=== PATIENT | female | born 1985 | race Caucasian/White ===

== ENCOUNTER 2021-09-16 13:07 | Day surgery (SDC) | payer OTHER ==
[2021-09-16] MEDS ORDERED: Depo-Medrol 40 MG/ML IM ONE (13:08)
[2021-09-16] MEDS ORDERED: Sodium Chloride 0.9(Preservative Free) 10 ML IJ ONE (13:08)
[2021-09-16] MEDS ORDERED: Lactated Ringers 1,000 ML IV ONE (15:18)
[2021-09-16] MEDS ORDERED: DIPRIVAN 200 MG/20 ML IV ONE ×2 (15:53→15:59)
--- NOTE | 2021-09-16 16:50 | XRAY ---
Indication: Right L3-L5 transforaminal ZUNILDA. Intraoperative fluoroscopy provided for 37 seconds. 4 digital spot image submitted for interpretation demonstrates posterior needle tips projecting over the expected right L3 and L4 nerve roots. Small amount of contrast injected for needle tip placement. Correlate with intraoperative findings/report.
--- NOTE | 2021-09-16 18:29 | XRAY ---
37 seconds of fluoroscopy was used in surgery for a right L3-L5 transforaminal ZUNILDA.
== END 2021-09-16 16:20 | disposition home or self-care (01) ==
LOC: SDC-PAIN 13:07
PROVIDERS: ATTEND Psychiatry & Neurology Pain Medicine
DX: M54.16 Radiculopathy, lumbar region (principal); Z79.899 Other long term (current) drug therapy
CPT/HCPCS: 64483; 64484; 72100; 77003; J1030; J2704; Q9966

== ENCOUNTER 2021-11-04 13:32 | Day surgery (SDC) | payer OTHER ==
[2021-11-04] MEDS ORDERED: Depo-Medrol 40 MG/ML IM ONE (13:33)
[2021-11-04] MEDS ORDERED: Sodium Chloride 0.9(Preservative Free) 10 ML IJ ONE (13:33)
[2021-11-04] MEDS ORDERED: Xylocaine-Mpf 2% 5 Ml Vial ONE (14:27)
[2021-11-04] MEDS ORDERED: DIPRIVAN 200 MG/20 ML IV ONE (14:27)
--- NOTE | 2021-11-04 14:55 | XRAY ---
Indication: Right L3-L5 transforaminal ZUNILDA. Intraoperative fluoroscopy provided for 28 seconds. 4 digital spot images submitted for interpretation demonstrates posterior needle tips projecting over the expected right L3 and L4 nerve roots. Small amount of contrast injected for needle tip placement. Correlate with intraoperative findings/report.
--- NOTE | 2021-11-04 15:00 | XRAY ---
28 seconds fluoroscopy time in surgery for right L3-L5 transforaminal ZUNILDA.
[2021-11-04] MEDS ORDERED: Lactated Ringers 1,000 ML IV ONE (15:14)
== END 2021-11-04 14:52 | disposition home or self-care (01) ==
LOC: SDC-PAIN 13:32
PROVIDERS: ATTEND Psychiatry & Neurology Pain Medicine
DX: M54.16 Radiculopathy, lumbar region (principal); Z79.899 Other long term (current) drug therapy
CPT/HCPCS: 64483; 64484; 72100; 77003; J1030; J2704; Q9966

== ENCOUNTER 2021-12-09 13:11 | Day surgery (SDC) | payer OTHER ==
[2021-12-09] MEDS ORDERED: LIDOCAINE HCL 2% 100 MG/5 ML IJ ONE (13:12)
[2021-12-09] MEDS ORDERED: Xylocaine-Mpf 2% 5 Ml Vial ONE (14:56)
[2021-12-09] MEDS ORDERED: DIPRIVAN 200 MG/20 ML IV ONE (14:57)
--- NOTE | 2021-12-09 16:29 | XRAY ---
Indication: Bilateral L4-S1 MBB. Intraoperative fluoroscopy provided for 12 seconds. Single digital spot image submitted for interpretation demonstrates posterior needle tips projecting over the expected left and right L4-S1 nerve roots. Correlate with intraoperative findings/report.
[2021-12-09] MEDS ORDERED: Lactated Ringers 1,000 ML IV ONE (16:39)
--- NOTE | 2021-12-09 16:48 | XRAY ---
12 seconds of fluoroscopy was used in surgery for a bilateral L4-S1 MBB.
== END 2021-12-09 15:18 | disposition home or self-care (01) ==
LOC: SDC-PAIN 13:11
PROVIDERS: ATTEND Psychiatry & Neurology Pain Medicine
DX: M47.816 Spondylosis without myelopathy or radiculopathy, lumbar region (principal); Z79.899 Other long term (current) drug therapy
CPT/HCPCS: 64493; 64494; 72020; 77002; J2704

== ENCOUNTER 2022-01-06 15:07 | Day surgery (SDC) | payer OTHER ==
[2022-01-06] MEDS ORDERED: Marcaine Mpf 0.5% Vial 30 Ml IJ ONE (15:08)
[2022-01-06] MEDS ORDERED: Lactated Ringers 1,000 ML IV ONE (16:03)
--- NOTE | 2022-01-06 20:10 | XRAY ---
Indication: Bilateral L4-S1 MBB. Intraoperative fluoroscopy provided for 13 seconds. Single digital spot image submitted for interpretation demonstrates posterior needle tips projecting over the expected left and right L4-S1 nerve roots. Correlate with intraoperative findings/report.
--- NOTE | 2022-01-07 08:51 | XRAY ---
13 seconds fluoroscopy time in surgery for bilateral L4-S1 MBB.
== END 2022-01-06 15:15 | disposition home or self-care (01) ==
LOC: SDC-PAIN 15:07
PROVIDERS: ATTEND Psychiatry & Neurology Pain Medicine
DX: M47.816 Spondylosis without myelopathy or radiculopathy, lumbar region (principal); Z79.899 Other long term (current) drug therapy
CPT/HCPCS: 64493; 64494; 72020; 77002

== ENCOUNTER 2022-01-20 14:01 | Day surgery (SDC) | payer OTHER ==
[2022-01-20] MEDS ORDERED: Depo-Medrol 40 MG/ML IM ONE (14:02)
[2022-01-20] MEDS ORDERED: XYLOCAINE-MPF 1% 5ML SDV IJ ONE (14:02)
[2022-01-20] MEDS ORDERED: BUPIVACAINE 0.5% VIAL IJ ONE (14:02)
[2022-01-20] MEDS ORDERED: DIPRIVAN 200 MG/20 ML IV ONE (16:00)
[2022-01-20] MEDS ORDERED: MORPHINE SULFATE 2 MG INJ ONE (16:17)
--- NOTE | 2022-01-20 16:58 | XRAY ---
Indication: Right L4-S1 RFA. Intraoperative fluoroscopy provided for 22 seconds. 3 digital spot image submitted for interpretation demonstrates posterior needle tips projecting over the expected right L4-S1 nerve roots. Correlate with intraoperative findings/report.
[2022-01-20] MEDS ORDERED: Lactated Ringers 1,000 ML IV ONE (17:32)
--- NOTE | 2022-01-21 09:34 | XRAY ---
22 seconds of fluoroscopy was used in surgery for a right L4-S1 RFA.
== END 2022-01-20 16:25 | disposition home or self-care (01) ==
LOC: SDC-PAIN 14:01
PROVIDERS: ATTEND Psychiatry & Neurology Pain Medicine
DX: M47.816 Spondylosis without myelopathy or radiculopathy, lumbar region (principal); Z79.899 Other long term (current) drug therapy
CPT/HCPCS: 64635; 64636; 72100; 77002; J1030; J2270; J2704

== ENCOUNTER 2022-01-27 13:55 | Day surgery (SDC) | payer OTHER ==
[2022-01-27] MEDS ORDERED: LIDOCAINE HCL 1% 50 MG/5 ML VL PF IJ ONE (13:56)
[2022-01-27] MEDS ORDERED: BUPIVACAINE 0.5% VIAL IJ ONE (13:56)
[2022-01-27] MEDS ORDERED: Depo-Medrol 40 MG/ML IM ONE (13:56)
[2022-01-27] MEDS ORDERED: Lactated Ringers 1,000 ML IV ONE (14:46)
[2022-01-27] MEDS ORDERED: DIPRIVAN 200 MG/20 ML IV ONE (15:34)
--- NOTE | 2022-01-27 18:19 | XRAY ---
Indication: Left L4-S1 RFA. Intraoperative fluoroscopy provided for 16 seconds. 4 digital spot image submitted for interpretation demonstrates posterior needle tips projecting over the expected left L4-S1 nerve roots. Correlate with intraoperative findings/report.
--- NOTE | 2022-01-28 09:54 | XRAY ---
16 seconds of fluoroscopy was used in surgery for a left L4-S1 RFA.
== END 2022-01-27 14:15 | disposition home or self-care (01) ==
LOC: SDC-PAIN 13:55
PROVIDERS: ATTEND Psychiatry & Neurology Pain Medicine
DX: M47.816 Spondylosis without myelopathy or radiculopathy, lumbar region (principal); Z79.899 Other long term (current) drug therapy
CPT/HCPCS: 64635; 64636; 72100; 77002; J1030; J2001; J2704

== ENCOUNTER 2023-01-06 12:12 | Day surgery (SDC) | payer OTHER ==
[2023-01-06] MEDS ORDERED: Depo-Medrol 40 MG/ML IM ONE (12:13)
[2023-01-06] MEDS ORDERED: Sodium Chloride 0.9(Preservative Free) 10 ML IJ ONE (12:13)
[2023-01-06] MEDS ORDERED: DIPRIVAN 200 MG/20 ML IV ONE (13:25)
[2023-01-06] MEDS ORDERED: Lactated Ringers 1,000 ML IV ONE (13:45)
[2023-01-06] MEDS ORDERED: TORAdol 30 mg Injection ONE (13:52)
--- NOTE | 2023-01-06 14:05 | XRAY ---
Indication: Right L3-L5 transforaminal ZUNILDA. Intraoperative fluoroscopy provided for 33 seconds. 4 digital spot image submitted for interpretation demonstrates posterior needle tips projecting over the expected right L3 and L4 nerve roots. Small amount of contrast injected for needle tip placement. Correlate with intraoperative findings/report.
--- NOTE | 2023-01-06 14:07 | XRAY ---
33 seconds of fluoroscopy was used in surgery for a right L3-L5 transforaminal ZUNILDA.
== END 2023-01-06 14:03 | disposition home or self-care (01) ==
LOC: SDC-PAIN 12:12
PROVIDERS: ATTEND Psychiatry & Neurology Pain Medicine
DX: M54.16 Radiculopathy, lumbar region (principal); Z79.899 Other long term (current) drug therapy
CPT/HCPCS: 64483; 64484; 72100; 77003; J1030; J1885; J2704; Q9966

== ENCOUNTER 2024-03-07 13:13 | Day surgery (SDC) | payer OTHER ==
[2024-03-07] MEDS ORDERED: DIPRIVAN 200 MG/20 ML IV ONE (14:47)
[2024-03-07] MEDS ORDERED: Sodium Chloride 0.9% 250 ML 250 ML IV ONE (15:53)
--- NOTE | 2024-03-07 16:37 | XRAY ---
Indication: Right L4-S1 transforaminal ZUNILDA. Intraoperative fluoroscopy provided for 20 seconds. 3 digital spot image submitted for interpretation demonstrates posterior needle tips projecting over the expected right L4 and L5 nerve roots. Small amount of contrast injected for needle tip placement. Correlate with intraoperative findings/report.
--- NOTE | 2024-03-07 16:39 | XRAY ---
Indication: Right piriformis injection. Intraoperative fluoroscopy provided for 10 seconds. Single digital spot image submitted for interpretation demonstrates posterior needle tip projecting over right piriformis. Small amount of contrast injected for needle tip placement. Correlate with intraoperative findings/report.
--- NOTE | 2024-03-07 16:43 | XRAY ---
20 seconds of fluoroscopy was used in surgery for a right L4-S1 transforaminal ZUNILDA.
--- NOTE | 2024-03-07 16:43 | XRAY ---
10 seconds of fluoroscopy was used in surgery for a right piriformis injection.
== END 2024-03-07 15:38 | disposition home or self-care (01) ==
LOC: SDC-PAIN 13:13
PROVIDERS: ATTEND Psychiatry & Neurology Pain Medicine
DX: M79.18 Myalgia, other site (principal); M54.16 Radiculopathy, lumbar region
CPT/HCPCS: 20552; 64483; 64484; 72100; 72170; 77002; 77003; J2704; Q9966